=== PATIENT | female | born 1945 | race African-American/Black ===

== ENCOUNTER 2024-01-20 12:48 | Inpatient (IN) | payer OTHER, MEDICAID ==
[~2024-01-20] VITALS: Ht 167.6 cm; Wt 67.6 kg
[~2024-01-20 12:48] MED LIST: BREX1TAB PO; DIVA500T69 PO; LEVE500S10 PO; LEVE500T20 PO; MELA5TAB40 PO
[2024-01-20 16:00] LABS: BASOPHILS % (AUTO) 1.1 % (0.0-2.0); EOSINOPHILS % (AUTO) 2.8 % (1.0-6.0); HEMATOCRIT 43.4 % (36-46); HEMOGLOBIN 14.3 g/dL (12.0-16.0); LYMPHOCYTES % (AUTO) 45.4 % (22.0-44.0); MEAN CORPUSCULAR HEMOGLOBIN 30.3 pg (26.0-34.0); MEAN CORPUSCULAR HGB CONC 32.9 G/dL (31.0-37.0); MEAN CORPUSCULAR VOLUME 92 fL (80-100); MONOCYTES # (AUTO) 0.4 K/uL (0.1-1.0); NEUTROPHILS # (AUTO) 1.8 K/uL (1.8-7.7); NEUTROPHILS % (AUTO) 40.7 % (40.0-70.0); PLATELET COUNT (AUTO) 182 K/uL (150-450); RED CELL DISTRIBUTION WIDTH 14.2 % (11.5-14.5); WHITE BLOOD COUNT (AUTO) 4.5 K/uL (4.5-11.0)
[2024-01-20 16:05] LABS: ANION GAP 6 mmol/L (8-16); CALCIUM, TOTAL 8.9 mg/dL (8.8-10.5); CARBON DIOXIDE 32 mmol/L (22-29); CHLORIDE 105 mmol/L (98-107); CREATININE 0.83 mg/dL (0.60-1.30); GLOMERULAR FILTR. RATE CALC > 60 mL/min (>60); GLUCOSE,RANDOM 91 mg/dL (70-110); POTASSIUM 3.4 mmol/L (3.5-5.1); SODIUM SERUM 143 mmol/L (136-145); UREA NITROGEN, BLOOD 10 mg/dL (7-18)
[2024-01-20 16:13] LABS: PH,URINE DRUG SCREEN 6.5 (5.0-8.0)
[2024-01-20 16:18] LABS: ALANINE AMINOTRANSFERASE 14 U/L (12-78); ALBUMIN 3.4 g/dL (3.4-5.0); ALCOHOL, BLOOD (SERUM) < 3 mg/dL (0-10); ALKALINE PHOSPHATASE 84 U/L (46-116); ASPARTATE AMINOTRANSFERASE 15 U/L (15-37); BILIRUBIN,TOTAL 0.4 mg/dL (0.1-1.0); TOTAL PROTEIN, SERUM 7.7 g/dL (6.4-8.2)
[2024-01-20 16:19] LABS: ALCOHOL, URINE DRUG SCREEN NEGATIVE (NEGATIVE); AMPHET/METH SCREEN,URINE NEGATIVE (NEGATIVE); BARBITURATE SCREEN, URINE NEGATIVE (NEGATIVE); BENZODIAZEPINES SCREEN,URINE NEGATIVE (NEGATIVE); CANNABINOID SCREEN,URINE NEGATIVE (NEGATIVE); COCAINE SCREEN,URINE NEGATIVE (NEGATIVE); METHADONE SCREEN, URINE NEGATIVE (NEGATIVE); OPIATE SCREEN,URINE NEGATIVE (NEGATIVE); PHENCYCLIDINE SCREEN,URINE NEGATIVE (NEGATIVE)
[2024-01-20 16:23] LABS: PLATELET MORPHOLOGY COMMENT LARGE PLTS PRESENT; RBC MORPHOLOGY COMMENT NORMAL RBC MORPH
[2024-01-21] MEDS ORDERED: LORazepam 2 MG TABLET PO PRN (02:15)
[2024-01-21] MEDS ORDERED: HALOPERIDOL 5 MG TABLET PO PRN (02:15)
[2024-01-21] MEDS ORDERED: ZOLPIDEM TARTRATE 10 MG TABLET PO PRN (02:15)
[2024-01-21 03:57] LABS: COVID AG,FIA SOURCE NASAL SWAB
[2024-01-21 04:14] LABS: SARS-COV2 (COVID) ANTIGEN,FIA Negative (Negative)
[2024-01-21 14:00] VITALS: BP 156/87; PULSE 60; RESP 17; O2SAT 97
[2024-01-21] MEDS ORDERED: MAG HYDROX/ALUMINUM HYD/SIMETH ES 30 ML SUSPENSION UDCUP PO PRN (14:30)
[2024-01-21] MEDS ORDERED: PETROLATUM,WHITE 28 GM JELLY TP PRN (14:30)
[2024-01-21] MEDS ORDERED: CloNIDine HCL 0.1 MG TABLET PO PRN (14:30)
[2024-01-21] MEDS ORDERED: GuaiFENesin/D-METHORPHAN [SUGAR-FREE] 200-20MG/10 ML SYRUP UDCUP PO PRN (14:30)
[2024-01-21] MEDS ORDERED: ONDANSETRON HCL 4 MG TABLET PO PRN (14:30)
[2024-01-21] MEDS ORDERED: NICOTINE 14 MG/24 HOUR PATCH TD PRN (14:30)
[2024-01-21] MEDS ORDERED: DOCUSATE SODIUM 100 MG CAPSULE PO PRN (14:30)
[2024-01-21] MEDS ORDERED: MAGNESIUM HYDROXIDE SUSPENSION 30 ML UDCUP PO PRN (14:30)
[2024-01-21] MEDS ORDERED: IBUPROFEN 400 MG TABLET PO PRN (14:30)
[2024-01-21] MEDS ORDERED: ALBUTEROL SULFATE HFA 90 MCG/PUFF 8 GM INHALER IH PRN (14:30)
[2024-01-21] MEDS ORDERED: LOPERAMIDE HCL 2 MG CAPSULE PO PRN (14:30)
[2024-01-21] MEDS: POTASSIUM CHLORIDE 10% 40 MEQ/30 ML LIQUID UDCUP PO ONE (16:00)
[2024-01-21] MEDS: AmLODIPine BESYLATE 5 MG TABLET PO ONE (16:07)
[2024-01-21] MEDS: LevETIRAcetam 500 MG TABLET PO SCH (16:12)
[2024-01-21 21:12] VITALS: BP 150/82; PULSE 86; RESP 16; TEMP 98.1; O2SAT 96
[2024-01-21] MEDS: BREXPIPRAZOLE 1 MG TABLET PO SCH (21:36)
[2024-01-21] MEDS: MELATONIN 5 MG TABLET PO SCH (21:37)
[2024-01-21] MEDS: DIVALPROEX SODIUM 500 MG ER TABLET PO SCH (21:37)
[2024-01-22 08:07] VITALS: BP 149/98; PULSE 91; RESP 18; TEMP 98.1; O2SAT 94
[2024-01-22 08:44] LABS: HEMOGLOBIN A1C 5.7 % (3.8-5.6)
[2024-01-22] MEDS: AmLODIPine BESYLATE 5 MG TABLET PO SCH (09:00)
[2024-01-22 09:16] LABS: CHOL/HDL RATIO 2.2 (3.9-5.7); THYROID STIMULATING HORMONE 1.23 uIU/mL (0.36-3.74)
[2024-01-22 19:52] VITALS: BP 171/101; PULSE 80; RESP 18; TEMP 97.7; O2SAT 93
[2024-01-23 08:21] VITALS: BP 144/86; PULSE 84; RESP 17; TEMP 96.8; O2SAT 93
[2024-01-23 09:36] LABS: APPEARANCE,URINE CLEAR (CLEAR); BILIRUBIN,URINE NEGATIVE (NEGATIVE); COLOR,URINE YELLOW (YELLOW); GLUCOSE, URINE (UA) NEGATIVE (NEGATIVE); KETONES,URINE NEGATIVE (NEGATIVE); LEUKOCYTE ESTERASE ,URINE MODERATE (NEGATIVE); NITRATE,URINE NEGATIVE (NEGATIVE); OCCULT BLOOD,URINE NEGATIVE (NEGATIVE); PROTEIN,URINE TRACE mg/dL (NEGATIVE); SPECIFIC GRAVITIY, URINE 1.022 (1.003-1.030); UROBILINOGEN,URINE <=1.0 mg/dL (<=1.0)
[2024-01-23 09:49] LABS: ALCOHOL, URINE DRUG SCREEN NEGATIVE (NEGATIVE); AMPHET/METH SCREEN,URINE NEGATIVE (NEGATIVE); BARBITURATE SCREEN, URINE NEGATIVE (NEGATIVE); BENZODIAZEPINES SCREEN,URINE NEGATIVE (NEGATIVE); CANNABINOID SCREEN,URINE NEGATIVE (NEGATIVE); COCAINE SCREEN,URINE NEGATIVE (NEGATIVE); METHADONE SCREEN, URINE NEGATIVE (NEGATIVE); OPIATE SCREEN,URINE NEGATIVE (NEGATIVE); PHENCYCLIDINE SCREEN,URINE NEGATIVE (NEGATIVE)
[2024-01-23 09:57] LABS: BACTERIA,URINE Moderate /HPF (None Seen); RBC,URINE 0-2 /HPF (0-2)
[2024-01-23 09:58] LABS: CALCIUM OXALATE CRYSTALS,UR Moderate /LPF (None Seen); SQUAMOUS EPITHELIAL CELL,UR Moderate /LPF (None Seen)
[2024-01-23 21:12] VITALS: BP 158/89; PULSE 77; RESP 18; TEMP 97.2; O2SAT 96
[2024-01-24 08:10] VITALS: BP 134/96; PULSE 86; RESP 17; TEMP 97.5; O2SAT 94
[2024-01-24 21:00] VITALS: BP 132/91; PULSE 82; RESP 18; TEMP 98; O2SAT 96
[2024-01-25 08:32] VITALS: BP 147/84; PULSE 66; RESP 18; TEMP 97.8; O2SAT 96
[2024-01-25 20:52] VITALS: BP 139/90; PULSE 81; RESP 18; TEMP 98; O2SAT 93
[2024-01-26 10:07] VITALS: BP 127/82; PULSE 68; RESP 17; TEMP 97.6; O2SAT 96
[2024-01-26 20:20] VITALS: BP 147/87; PULSE 78; RESP 20; TEMP 97.9; O2SAT 94
[2024-01-27 08:04] VITALS: BP 138/81; PULSE 79; RESP 19; TEMP 98; O2SAT 97
[2024-01-27 20:24] VITALS: BP 118/86; PULSE 75; RESP 16; TEMP 97.7; O2SAT 98
[2024-01-28 09:52] VITALS: BP 122/70; PULSE 79; RESP 17; TEMP 96.3; O2SAT 93
[2024-01-28 20:28] VITALS: BP 131/76; PULSE 102; RESP 18; TEMP 97.9; O2SAT 96
[2024-01-29 08:43] VITALS: BP 169/88; PULSE 72; RESP 17; TEMP 96.5; O2SAT 94
[2024-01-29] MEDS: BREXPIPRAZOLE 2 MG TABLET PO SCH (20:32)
[2024-01-29 21:56] VITALS: BP 153/93; PULSE 96; RESP 17; TEMP 97.7; O2SAT 96
[2024-01-30 09:10] VITALS: BP 147/92; PULSE 86; RESP 19; TEMP 97.6; O2SAT 96
[2024-01-30 20:20] VITALS: BP 154/97; PULSE 73; RESP 16; TEMP 97.5; O2SAT 97
[2024-01-31 08:39] VITALS: BP 143/91; PULSE 76; RESP 17; TEMP 96.9; O2SAT 93
[2024-01-31 20:23] VITALS: BP 139/86; PULSE 90; RESP 18; TEMP 98.4; O2SAT 96
[2024-02-01 08:47] VITALS: BP 137/68; PULSE 67; RESP 17; TEMP 96.5; O2SAT 96
[2024-02-01 16:29] VITALS: RESP 18
[2024-02-01] MEDS: ACETAMINOPHEN 325 MG TABLET PO PRN (16:29)
[2024-02-01 17:29] VITALS: RESP 18
[2024-02-01 21:23] VITALS: BP 126/83; PULSE 74; RESP 16; TEMP 97.3; O2SAT 98
[2024-02-02 08:35] VITALS: BP 131/71; PULSE 80; RESP 17; TEMP 97.5; O2SAT 97
[2024-02-02] MEDS: VALPROIC ACID 250 MG/5 ML SOLUTION UDCUP PO SCH (09:31)
[2024-02-02 18:03] VITALS: RESP 18
[2024-02-02 19:03] VITALS: RESP 18
[2024-02-02 20:23] VITALS: BP 134/73; PULSE 83; RESP 19; TEMP 98.2; O2SAT 97
[2024-02-03 08:22] VITALS: BP 124/87; PULSE 80; RESP 15; TEMP 97.4; O2SAT 98
[2024-02-03 22:09] VITALS: BP 137/62; PULSE 74; RESP 18; TEMP 98.5; O2SAT 95
[2024-02-04 09:39] VITALS: BP 135/96; PULSE 86; RESP 19; TEMP 97.7; O2SAT 86
[2024-02-04 20:24] VITALS: RESP 18
[2024-02-04 20:45] VITALS: BP 144/80; PULSE 66; TEMP 97.9; O2SAT 98
[2024-02-04 21:24] VITALS: RESP 18
[2024-02-05 08:36] VITALS: BP 137/92; PULSE 69; RESP 14; TEMP 97.6; O2SAT 95
[2024-02-06 00:37] VITALS: RESP 18
[2024-02-06 08:00] VITALS: PULSE 96; RESP 14; TEMP 97.9; O2SAT 95
[2024-02-06 13:04] VITALS: BP 130/85; PULSE 74; RESP 18; TEMP 97.8; O2SAT 97
[2024-02-06 21:24] VITALS: BP 155/89; PULSE 99; RESP 18; TEMP 97.7; O2SAT 95
[2024-02-07 08:28] VITALS: BP 142/97; PULSE 77; RESP 18; TEMP 97.9; O2SAT 96
[2024-02-07 20:27] VITALS: BP 147/75; PULSE 88; TEMP 97.6; O2SAT 95
[2024-02-08 08:32] VITALS: BP 142/86; PULSE 66; RESP 20; TEMP 96.8; O2SAT 96
[2024-02-08 21:06] VITALS: BP 136/78; PULSE 85; TEMP 98; O2SAT 97
[2024-02-09 08:22] VITALS: BP 136/89; PULSE 90; RESP 18; TEMP 98.5; O2SAT 97
[2024-02-09 20:18] VITALS: BP 138/87; PULSE 89; TEMP 98.4; O2SAT 96
[2024-02-10 08:48] VITALS: BP 135/77; PULSE 78; RESP 17; TEMP 97.7; O2SAT 97
[2024-02-10 08:56] VITALS: BP 135/77
[2024-02-10] MEDS ORDERED: VALP250S23 PO (13:58)
[2024-02-10] MEDS ORDERED: BREX2TAB PO (13:59)
[2024-02-10] MEDS ORDERED: AMLO5TAB66 PO (14:01)
[2024-02-10 20:00] VITALS: RESP 18
== END 2024-02-10 22:40 | DRG 885 ==
LOC: EMS 12:48 → B2S 01-21 12:12 → B3A 02-03 18:51
PROVIDERS: ADMIT Psychiatry & Neurology Psychiatry; ATTEND Psychiatry & Neurology Psychiatry
PROC: GZHZZZZ Group Psychotherapy (ICD-10-PCS; principal; 2024-01-21)
PROC: GZ52ZZZ Individual Psychotherapy, Cognitive (ICD-10-PCS; 2024-01-26)
PROC: GZ51ZZZ Individual Psychotherapy, Behavioral (ICD-10-PCS; 2024-02-05)
DX: F25.0 Schizoaffective disorder, bipolar type (principal); F03.918 Unspecified dementia, unspecified severity, with other behavioral disturbance; F32.A Depression, unspecified; G40.909 Epilepsy, unspecified, not intractable, without status epilepticus; I10 Essential (primary) hypertension; Z20.822 Contact with and (suspected) exposure to COVID-19; Z86.73 Personal history of transient ischemic attack (TIA), and cerebral infarction without residual deficits; G47.00 Insomnia, unspecified; E78.5 Hyperlipidemia, unspecified; F10.90 Alcohol use, unspecified, uncomplicated; E78.00 Pure hypercholesterolemia, unspecified; F41.9 Anxiety disorder, unspecified; F17.210 Nicotine dependence, cigarettes, uncomplicated; Z90.49 Acquired absence of other specified parts of digestive tract; Z79.899 Other long term (current) drug therapy; Z88.5 Allergy status to narcotic agent
CPT/HCPCS: 80053; 80061; 80164; 80307; 81001; 83036; 84132; 84443; 85025; 87086; 87186; 87481; 99285; G0480; Q9967